=== PATIENT | female | born 1930 | race African-American/Black ===

== ENCOUNTER → 2018-07-26 | Outpatient (CLI) | payer MEDICARE, BC ==
[2018-07-26 13:14] LABS: ADD MAN DIFF? NO
[2018-07-26 13:20] LABS: BASOPHILS % 0.4 % (0.0-2.0); EOSINOPHILS # 0.1 10^3/ul (0.0-0.5); EOSINOPHILS % 0.7 % (0.0-7.0); HEMATOCRIT 39.8 % (37.0-47.0); HEMOGLOBIN 12.5 g/dl (12.0-16.0); LYMPHOCYTES # 3.7 10^3/ul (0.8-2.9); LYMPHOCYTES % 43.8 % (15.0-51.0); MEAN CORPUSCULAR HEMOGLOBIN 28.6 pg (29.0-33.0); MEAN CORPUSCULAR HGB CONC 31.4 g/dl (32.0-37.0); MEAN CORPUSCULAR VOLUME 91.1 fl (82.0-101.0); MEAN PLATELET VOLUME 11.3 fl (7.4-10.4); MONOCYTE # 0.6 10^3/ul (0.3-0.9); MONOCYTES % 7.1 % (0.0-11.0); NEUTROPHILS % 47.3 % (39.0-77.0); PLATELET COUNT 186 10^3/UL (140-415); RED BLOOD COUNT 4.37 10^6/ul (4.20-5.40); RED CELL DISTRIBUTION WIDTH 14.4 % (11.5-14.5)
[2018-07-26 13:20] LABS: WHITE BLOOD COUNT 8.5 10^3/ul (4.8-10.8)
[2018-07-26 13:29] LABS: ADD UMIC NO; UR ASCORBIC ACID NEGATIVE (NEGATIVE); UR BILIRUBIN (Dip) NEGATIVE (NEGATIVE); UR BLOOD (Dip) NEGATIVE (NEGATIVE); UR CLARITY SLIGHTLY CLOUDY (CLEAR); UR COLOR YELLOW (YELLOW); UR GLUCOSE (Dip) NEGATIVE (NEGATIVE); UR KETONES (Dip) NEGATIVE (NEGATIVE); UR LEUKOCYTE ESTERASE (Dip) NEGATIVE Leu/ul (NEGATIVE); UR NITRITE (Dip) NEGATIVE (NEGATIVE); UR RBC 0 /HPF (0-5); UR SPECIFIC GRAVITY (Dip) 1.016 (1.003-1.030); UR SQUAMOUS EPITHELIAL CELL FEW /HPF (FEW); UR TOTAL PROTEIN (Dip) NEGATIVE (NEGATIVE); UR UROBILINOGEN (Dip) 1+ mg/dL (NEGATIVE); UR WBC 3 /HPF (0-5)
[2018-07-26 13:41] LABS: INR 0.96; PARTIAL THROMBOPLASTIN TIME 23.6 Sec (23.0-35.0); PROTIME 12.9 Sec (11.9-14.9)
[2018-07-26 13:46] LABS: ALANINE AMINOTRANSFERASE 21 IU/L (13-69); ALBUMIN 4.3 g/dl (3.3-4.9); ALBUMIN/GLOBULIN RATIO 1.34; ALKALINE PHOSPHATASE 26 IU/L (42-121); ANION GAP 10 (5-13); ASPARTATE AMINO TRANSFERASE 20 IU/L (15-46); BILIRUBIN,INDIRECT 0.3 mg/dl (0-1.1); BILIRUBIN,TOTAL 0.3 mg/dl (0.2-1.3); BLOOD UREA NITROGEN 27 mg/dl (7-20); CALCIUM 10.4 mg/dl (8.4-10.2); CARBON DIOXIDE 27 mmol/L (21-31); CHLORIDE 105 mmol/L (97-110); CREATININE 1.17 mg/dl (0.44-1.00); GLUCOSE 88 mg/dl (70-220); POTASSIUM 4.5 mmol/L (3.5-5.1); SODIUM 142 mmol/L (135-144); TOTAL PROTEIN 7.5 g/dl (6.1-8.1)
== END | disposition home or self-care (01) ==
LOC: LAB 12:48
DX: Z01.818 Encounter for other preprocedural examination (principal); I10 Essential (primary) hypertension; D48.9 Neoplasm of uncertain behavior, unspecified
CPT/HCPCS: 71045; 80053; 81001; 81003; 85025; 85610; 85730; 93005

== ENCOUNTER 2018-08-02 06:28 | Inpatient (IN) | payer MEDICARE, BC ==
[2018-08-02] MEDS ORDERED: METOCLOPRAMIDE 10 MG INJ (07:00)
[2018-08-02] MEDS ORDERED: DEXAMETHASONE 4 MG/ML 1 ML INJ (07:00)
[2018-08-02] MEDS ORDERED: PROPOFOL 200 MG INJ (07:00)
[2018-08-02] MEDS ORDERED: FENTAnyl 50 MCG/ML VIAL (07:47)
[2018-08-02] MEDS ORDERED: LIDOCAINE 2% (SDV) 5 ML INJ (07:48)
[2018-08-02] MEDS ORDERED: ROCURONIUM 50 MG INJ (07:48)
[2018-08-02] MEDS ORDERED: SUCCINYLCHOLINE CHLORIDE 100 MG/5 ML SYG IV (07:48)
[2018-08-02] MEDS ORDERED: MIDAZOLAM 1 MG/ML 2 ML INJ (07:48)
[2018-08-02] MEDS ORDERED: ONDANSETRON 4 MG INJ (07:49)
[2018-08-02] MEDS: BUPIVACAINE 0.25% (MPF) 30 ML INJ (08:09)
[2018-08-02] MEDS: LIDOCAINE 1%/EPI 30 ML INJ (08:09)
[2018-08-02] MEDS ORDERED: ONDANSETRON 4 MG INJ IV (08:30)
[2018-08-02] MEDS ORDERED: DIPHENHYDRAMINE 50 MG INJ IV (08:30)
[2018-08-02] MEDS ORDERED: KETOROLAC 30 MG INJ IV (08:30)
[2018-08-02] MEDS ORDERED: HYDROmorphONE 1 MG/5 ML IV SYRINGE IV ×3 (08:30)
[2018-08-02] MEDS ORDERED: LABETALOL HCL 20MG INJ IV (08:30)
[2018-08-02] MEDS ORDERED: ALBUMIN HUMAN 5% 250 ML IV (08:30)
[2018-08-02] MEDS ORDERED: IPRATROPIUM (NEB) 0.5 MG/2.5 ML AMP HHN (08:30)
[2018-08-02] MEDS ORDERED: LEVALBUTEROL (NEB) 1.25 MG/0.5 ML AMP HHN (08:30)
[2018-08-02] MEDS ORDERED: MEPERIDINE 25 MG INJ IV (08:30)
[2018-08-02] MEDS ORDERED: hydrALAzine 20 MG INJ IV (08:30)
[2018-08-02] MEDS ORDERED: FENTAnyl 50 MCG/ML VIAL IV ×2 (08:30)
[2018-08-02] MEDS: CEFAZOLIN 2 GM/50 ML (PMX) 50 ML IVPB ×2 (10:45→18:36)
[2018-08-02] MEDS: metroNIDAZOLE 500 MG/NS (PMX) 100 ML IVPB ×2 (10:45→18:36)
[2018-08-02] MEDS ORDERED: ROPIVACAINE 0.5 % 30 ML VIAL (12:26)
[2018-08-02] MEDS ORDERED: morphine SULFATE/PF (10 MG/10 ML) INJ (12:27)
[2018-08-02] MEDS ORDERED: ACETAMINOPHEN 500 MG TAB PO (13:30)
[2018-08-02] MEDS: LORAZEPAM 2 MG INJ IV (16:46)
[2018-08-02] MEDS: D5W-0.45 NACL + KCL 20 MEQ 1,000 ML IV (16:47)
[2018-08-02] MEDS: HYDROmorphONE 0.5 MG/0.5 ML SYG IV (21:14)
[2018-08-03] MEDS: CEFAZOLIN 2 GM/50 ML (PMX) 50 ML IVPB ×2 (03:08→11:19)
[2018-08-03] MEDS: metroNIDAZOLE 500 MG/NS (PMX) 100 ML IVPB ×2 (03:09→11:56)
[2018-08-03] MEDS: HYDROmorphONE 0.5 MG/0.5 ML SYG IV ×2 (03:09→20:11)
[2018-08-03] MEDS: PANTOPRAZOLE 40 MG INJ IV (05:06)
[2018-08-03] MEDS: LEVOTHYROXINE 100 MCG VIAL IV (05:07)
[2018-08-03] MEDS: D5W-0.45 NACL + KCL 20 MEQ 1,000 ML IV ×2 (05:07→20:11)
[2018-08-03] MEDS: ONDANSETRON 4 MG INJ IV (05:09)
[2018-08-03 05:14] LABS: ADD MAN DIFF? NO
[2018-08-03 05:18] LABS: WHITE BLOOD COUNT 7.5 10^3/ul (4.8-10.8)
[2018-08-03 05:18] LABS: BASOPHILS % 0.1 % (0.0-2.0); EOSINOPHILS % 0.1 % (0.0-7.0); HEMATOCRIT 32.5 % (37.0-47.0); HEMOGLOBIN 10.2 g/dl (12.0-16.0); LYMPHOCYTES # 1.1 10^3/ul (0.8-2.9); LYMPHOCYTES % 14.4 % (15.0-51.0); MEAN CORPUSCULAR HEMOGLOBIN 28.4 pg (29.0-33.0); MEAN CORPUSCULAR HGB CONC 31.4 g/dl (32.0-37.0); MEAN CORPUSCULAR VOLUME 90.5 fl (82.0-101.0); MEAN PLATELET VOLUME 11.5 fl (7.4-10.4); MONOCYTE # 0.5 10^3/ul (0.3-0.9); MONOCYTES % 6.7 % (0.0-11.0); NEUTROPHIL # 5.9 10^3/ul (1.6-7.5); NEUTROPHILS % 78.4 % (39.0-77.0); PLATELET COUNT 140 10^3/UL (140-415); RED BLOOD COUNT 3.59 10^6/ul (4.20-5.40); RED CELL DISTRIBUTION WIDTH 13.8 % (11.5-14.5)
[2018-08-03 05:39] LABS: ANION GAP 9 (5-13); BLOOD UREA NITROGEN 14 mg/dl (7-20); CALCIUM 8.8 mg/dl (8.4-10.2); CARBON DIOXIDE 25 mmol/L (21-31); CHLORIDE 105 mmol/L (97-110); CREATININE 0.71 mg/dl (0.44-1.00); GLUCOSE 149 mg/dl (70-220); POTASSIUM 3.7 mmol/L (3.5-5.1); SODIUM 139 mmol/L (135-144)
[2018-08-03] MEDS ORDERED: LEVOTHYROXINE 125 MCG TAB PO (07:00)
[2018-08-03] MEDS: ATENOLOL 25 MG TAB PO (09:53)
[2018-08-03] MEDS: BENAZEPRIL 20 MG TAB PO (09:57)
[2018-08-03 11:07] LABS: ADD UMIC YES; UR ASCORBIC ACID NEGATIVE (NEGATIVE); UR BILIRUBIN (Dip) NEGATIVE (NEGATIVE); UR BLOOD (Dip) 1+ mg/dL (NEGATIVE); UR CLARITY CLEAR (CLEAR); UR COLOR YELLOW (YELLOW); UR GLUCOSE (Dip) 2+ mg/dL (NEGATIVE); UR KETONES (Dip) NEGATIVE (NEGATIVE); UR LEUKOCYTE ESTERASE (Dip) NEGATIVE Leu/ul (NEGATIVE); UR MUCUS FEW /HPF (NONE SEEN); UR NITRITE (Dip) NEGATIVE (NEGATIVE); UR RBC 20 /HPF (0-5); UR SPECIFIC GRAVITY (Dip) 1.017 (1.003-1.030); UR TOTAL PROTEIN (Dip) NEGATIVE (NEGATIVE); UR UROBILINOGEN (Dip) NEGATIVE (NEGATIVE); UR WBC 2 /HPF (0-5)
[2018-08-03] MEDS: HYDROCODONE/APAP (5/325) TAB PO (13:42)
[2018-08-04] MEDS: LORAZEPAM 2 MG INJ IV ×2 (01:46→22:37)
[2018-08-04 05:20] LABS: ADD MAN DIFF? NO
[2018-08-04 05:23] LABS: WHITE BLOOD COUNT 7.1 10^3/ul (4.8-10.8)
[2018-08-04 05:23] LABS: BASOPHILS % 0.3 % (0.0-2.0); EOSINOPHILS % 0.6 % (0.0-7.0); HEMATOCRIT 32.7 % (37.0-47.0); HEMOGLOBIN 10.2 g/dl (12.0-16.0); LYMPHOCYTES # 1.2 10^3/ul (0.8-2.9); MEAN CORPUSCULAR HEMOGLOBIN 28.2 pg (29.0-33.0); MEAN CORPUSCULAR HGB CONC 31.2 g/dl (32.0-37.0); MEAN CORPUSCULAR VOLUME 90.3 fl (82.0-101.0); MEAN PLATELET VOLUME 11.8 fl (7.4-10.4); MONOCYTE # 0.5 10^3/ul (0.3-0.9); MONOCYTES % 7.3 % (0.0-11.0); NEUTROPHIL # 5.3 10^3/ul (1.6-7.5); NEUTROPHILS % 74.4 % (39.0-77.0); PLATELET COUNT 134 10^3/UL (140-415); RED BLOOD COUNT 3.62 10^6/ul (4.20-5.40); RED CELL DISTRIBUTION WIDTH 13.9 % (11.5-14.5)
[2018-08-04] MEDS: PANTOPRAZOLE 40 MG INJ IV (05:32)
[2018-08-04] MEDS: LEVOTHYROXINE 100 MCG VIAL IV (05:32)
[2018-08-04 06:05] LABS: ANION GAP 5 (5-13); BLOOD UREA NITROGEN 6 mg/dl (7-20); CALCIUM 8.8 mg/dl (8.4-10.2); CARBON DIOXIDE 25 mmol/L (21-31); CHLORIDE 108 mmol/L (97-110); CREATININE 0.67 mg/dl (0.44-1.00); GLUCOSE 113 mg/dl (70-220); MAGNESIUM 1.9 mg/dl (1.7-2.5); PHOSPHORUS 1.8 mg/dl (2.5-4.9); POTASSIUM 3.9 mmol/L (3.5-5.1); SODIUM 138 mmol/L (135-144)
[2018-08-04] MEDS: BENAZEPRIL 20 MG TAB PO (09:19)
[2018-08-04] MEDS: D5W-0.45 NACL + KCL 20 MEQ 1,000 ML IV ×2 (09:19→23:34)
[2018-08-04] MEDS: FENOFIBRATE 145 MG TAB PO (09:19)
[2018-08-04] MEDS: CHOLECALCIFEROL 2,000 UNIT CAP PO ×2 (09:20→21:13)
[2018-08-04] MEDS: ATENOLOL 25 MG TAB PO ×2 (09:20→23:28)
[2018-08-04] MEDS: POTASSIUM PHOSPHATE 20 MEQ in SOD CHLORIDE 0.9% 250 ML IVPB (09:53)
[2018-08-04] MEDS: EZETIMIBE 10 MG TAB PO (09:53)
[2018-08-04] MEDS: HYDROCODONE/APAP (5/325) TAB PO (12:06)
[2018-08-04] MEDS: hydrALAzine 20 MG INJ IV (21:32)
[2018-08-05] MEDS: D5W-0.45 NACL + KCL 20 MEQ 1,000 ML IV ×2 (01:09→13:44)
[2018-08-05] MEDS: HYDROCODONE/APAP (5/325) TAB PO ×2 (01:23→22:10)
[2018-08-05] MEDS: PANTOPRAZOLE (EC) 40 MG TAB PO (05:50)
[2018-08-05] MEDS: LEVOTHYROXINE 100 MCG VIAL IV (05:50)
[2018-08-05 05:53] LABS: ANION GAP 4 (5-13); BLOOD UREA NITROGEN 5 mg/dl (7-20); CALCIUM 8.6 mg/dl (8.4-10.2); CARBON DIOXIDE 24 mmol/L (21-31); CHLORIDE 110 mmol/L (97-110); CREATININE 0.65 mg/dl (0.44-1.00); GLUCOSE 118 mg/dl (70-220); PHOSPHORUS 1.9 mg/dl (2.5-4.9); POTASSIUM 3.8 mmol/L (3.5-5.1); SODIUM 138 mmol/L (135-144)
[2018-08-05] MEDS: BENAZEPRIL 20 MG TAB PO (09:05)
[2018-08-05] MEDS: FENOFIBRATE 145 MG TAB PO (09:05)
[2018-08-05] MEDS: EZETIMIBE 10 MG TAB PO (09:06)
[2018-08-05] MEDS: CHOLECALCIFEROL 2,000 UNIT CAP PO ×2 (09:06→22:03)
[2018-08-05] MEDS: ATENOLOL 25 MG TAB PO ×2 (09:06→21:00)
[2018-08-05] MEDS: ONDANSETRON 4 MG INJ IV ×2 (13:44→23:05)
[2018-08-05] MEDS: POTASSIUM PHOSPHATE 20 MEQ in SOD CHLORIDE 0.9% 250 ML IVPB (18:20)
[2018-08-06 05:16] LABS: HEMATOCRIT 41.9 % (37.0-47.0); HEMOGLOBIN 13.2 g/dl (12.0-16.0); MEAN CORPUSCULAR HEMOGLOBIN 28.1 pg (29.0-33.0); MEAN CORPUSCULAR HGB CONC 31.5 g/dl (32.0-37.0); MEAN CORPUSCULAR VOLUME 89.3 fl (82.0-101.0); MEAN PLATELET VOLUME 11.3 fl (7.4-10.4); PLATELET COUNT 219 10^3/UL (140-415); RED BLOOD COUNT 4.69 10^6/ul (4.20-5.40); RED CELL DISTRIBUTION WIDTH 13.8 % (11.5-14.5)
[2018-08-06 05:16] LABS: WHITE BLOOD COUNT 8.4 10^3/ul (4.8-10.8)
[2018-08-06 05:17] LABS: ADD MAN DIFF? YES; POSITIVE DIFF @See below
[2018-08-06] MEDS: LEVOTHYROXINE 125 MCG TAB PO (05:45)
[2018-08-06] MEDS: PANTOPRAZOLE (EC) 40 MG TAB PO (05:45)
[2018-08-06 05:56] LABS: ANION GAP 9 (5-13); BLOOD UREA NITROGEN 11 mg/dl (7-20); CALCIUM 9.4 mg/dl (8.4-10.2); CARBON DIOXIDE 20 mmol/L (21-31); CHLORIDE 108 mmol/L (97-110); CREATININE 1.09 mg/dl (0.44-1.00); GLUCOSE 148 mg/dl (70-220); POTASSIUM 4.3 mmol/L (3.5-5.1); SODIUM 137 mmol/L (135-144)
[2018-08-06 06:46] LABS: ANISOCYTOSIS 1+ (0-0); BAND NEUTROPHILS % (M) 1 % (0-4); BURR CELLS 1+ (0-0); GIANT THROMBO% (M) 1 % (0-0); LYMPHOCYTES #M 1.4 10^3/ul (0.8-2.9); LYMPHOCYTES % (M) 17 % (15-51); MONOCYTE #M 0.6 10^3/ul (0.3-0.9); MONOCYTES % (M) 8 % (0-11); MYELOCYTES % (M) 1 % (0-0); PLATELET ESTIMATE NORMAL; POIKILOCYTOSIS 1+ (0-0); REACTIVE LYMPHOCYTES% (M) 1 % (0-0); SEGMENTED NEUTROPHILS (M) % 72 % (39-77); SMUDGE%M 10 % (0-0)
[2018-08-06] MEDS: ATENOLOL 25 MG TAB PO ×2 (08:08→21:00)
[2018-08-06] MEDS: CHOLECALCIFEROL 2,000 UNIT CAP PO ×2 (08:09→21:00)
[2018-08-06] MEDS: EZETIMIBE 10 MG TAB PO (08:09)
[2018-08-06] MEDS: FENOFIBRATE 145 MG TAB PO (08:09)
[2018-08-06] MEDS: BENAZEPRIL 20 MG TAB PO (08:10)
[2018-08-06] MEDS: ONDANSETRON 4 MG INJ IV ×2 (12:47→18:31)
[2018-08-06] MEDS: LORAZEPAM 2 MG INJ IV (21:29)
[2018-08-07 05:29] LABS: HEMATOCRIT 36.8 % (37.0-47.0); HEMOGLOBIN 11.6 g/dl (12.0-16.0); MEAN CORPUSCULAR HEMOGLOBIN 28.3 pg (29.0-33.0); MEAN CORPUSCULAR HGB CONC 31.5 g/dl (32.0-37.0); MEAN CORPUSCULAR VOLUME 89.8 fl (82.0-101.0); MEAN PLATELET VOLUME 11.1 fl (7.4-10.4); PLATELET COUNT 206 10^3/UL (140-415); RED CELL DISTRIBUTION WIDTH 13.9 % (11.5-14.5)
[2018-08-07 05:29] LABS: WHITE BLOOD COUNT 6.4 10^3/ul (4.8-10.8)
[2018-08-07 05:46] LABS: ADD MAN DIFF? YES; POSITIVE DIFF @See below
[2018-08-07] MEDS: PANTOPRAZOLE (EC) 40 MG TAB PO (05:50)
[2018-08-07] MEDS: LEVOTHYROXINE 125 MCG TAB PO (05:50)
[2018-08-07 06:01] LABS: ANION GAP 12 (5-13); BLOOD UREA NITROGEN 25 mg/dl (7-20); CALCIUM 9.2 mg/dl (8.4-10.2); CARBON DIOXIDE 20 mmol/L (21-31); CHLORIDE 105 mmol/L (97-110); CREATININE 1.06 mg/dl (0.44-1.00); GLUCOSE 114 mg/dl (70-220); POTASSIUM 4.1 mmol/L (3.5-5.1); SODIUM 137 mmol/L (135-144)
[2018-08-07 07:41] LABS: ANISOCYTOSIS 1+ (0-0); BAND NEUTROPHILS #M 3.2 10^3/ul (0.0-0.6); BAND NEUTROPHILS % (M) 51 % (0-4); GIANT THROMBO% (M) 4 % (0-0); LYMPHOCYTES % (M) 17 % (15-51); METAMYELOCYTES #M 0.1 10^3/ul (0.0-0.0); METAMYELOCYTES %M 3 % (0-0); MONOCYTE #M 0.3 10^3/ul (0.3-0.9); MONOCYTES % (M) 5 % (0-11); PLATELET ESTIMATE NORMAL; PLATELET MORPHOLOGY COMMENT @See below; POIKILOCYTOSIS 1+ (0-0); POLYCHROMASIA 1+ (0-0); SEG NEUT #M 1.7 10^3/ul (1.6-7.5); SEGMENTED NEUTROPHILS (M) % 24 % (39-77); SMUDGE%M 8 % (0-0)
[2018-08-07] MEDS: FENOFIBRATE 145 MG TAB PO (09:21)
[2018-08-07] MEDS: EZETIMIBE 10 MG TAB PO (09:21)
[2018-08-07] MEDS: CHOLECALCIFEROL 2,000 UNIT CAP PO ×2 (09:22→21:09)
[2018-08-07] MEDS: BENAZEPRIL 20 MG TAB PO (09:25)
[2018-08-07] MEDS: ATENOLOL 25 MG TAB PO ×2 (09:26→21:10)
[2018-08-07] MEDS: SOD CHLORIDE 0.9% 1,000 ML IV ×2 (11:26→21:09)
[2018-08-07] MEDS: ONDANSETRON 4 MG INJ IV (16:33)
[2018-08-07] MEDS: HYDROCODONE/APAP (5/325) TAB PO (18:40)
[2018-08-07] MEDS: LORAZEPAM 2 MG INJ IV (20:36)
[2018-08-08] MEDS: ONDANSETRON 4 MG INJ IV ×3 (02:10→18:31)
[2018-08-08] MEDS: LORAZEPAM 2 MG INJ IV (04:31)
[2018-08-08 05:16] LABS: HEMATOCRIT 34.5 % (37.0-47.0); HEMOGLOBIN 10.9 g/dl (12.0-16.0); MEAN CORPUSCULAR HEMOGLOBIN 28.3 pg (29.0-33.0); MEAN CORPUSCULAR HGB CONC 31.6 g/dl (32.0-37.0); MEAN CORPUSCULAR VOLUME 89.6 fl (82.0-101.0); MEAN PLATELET VOLUME 10.7 fl (7.4-10.4); PLATELET COUNT 206 10^3/UL (140-415); RED BLOOD COUNT 3.85 10^6/ul (4.20-5.40); RED CELL DISTRIBUTION WIDTH 13.9 % (11.5-14.5)
[2018-08-08 05:16] LABS: WHITE BLOOD COUNT 6.4 10^3/ul (4.8-10.8)
[2018-08-08 05:17] LABS: ADD MAN DIFF? YES; POSITIVE DIFF @See below
[2018-08-08 05:29] LABS: ANION GAP 9 (5-13); BLOOD UREA NITROGEN 27 mg/dl (7-20); CARBON DIOXIDE 20 mmol/L (21-31); CHLORIDE 110 mmol/L (97-110); CREATININE 0.81 mg/dl (0.44-1.00); GLUCOSE 106 mg/dl (70-220); POTASSIUM 4.1 mmol/L (3.5-5.1); SODIUM 139 mmol/L (135-144)
[2018-08-08] MEDS: LEVOTHYROXINE 125 MCG TAB PO (05:32)
[2018-08-08] MEDS: PANTOPRAZOLE (EC) 40 MG TAB PO (05:32)
[2018-08-08] MEDS: SOD CHLORIDE 0.9% 1,000 ML IV ×2 (06:38→18:30)
[2018-08-08] MEDS: EZETIMIBE 10 MG TAB PO (09:53)
[2018-08-08] MEDS: CHOLECALCIFEROL 2,000 UNIT CAP PO ×2 (09:53→20:16)
[2018-08-08] MEDS: FENOFIBRATE 145 MG TAB PO (09:53)
[2018-08-08] MEDS: BENAZEPRIL 20 MG TAB PO (09:55)
[2018-08-08] MEDS: ATENOLOL 25 MG TAB PO ×2 (09:55→20:17)
[2018-08-08 11:25] LABS: ANISOCYTOSIS 1+ (0-0); BAND NEUTROPHILS #M 1.3 10^3/ul (0.0-0.6); BAND NEUTROPHILS % (M) 21 % (0-4); BASOPHILS % (M) 1 % (0-2); BURR CELLS 3+ (0-0); LYMPHOCYTES #M 1.9 10^3/ul (0.8-2.9); LYMPHOCYTES % (M) 30 % (15-51); MONOCYTE #M 0.7 10^3/ul (0.3-0.9); MONOCYTES % (M) 12 % (0-11); PLATELET ESTIMATE NORMAL; POIKILOCYTOSIS 3+ (0-0); POLYCHROMASIA 1+ (0-0); REACTIVE LYMPHOCYTES #M 0.1 10^3/ul (0.0-0.0); REACTIVE LYMPHOCYTES% (M) 2 % (0-0); SEG NEUT #M 2.3 10^3/ul (1.6-7.5); SEGMENTED NEUTROPHILS (M) % 34 % (39-77); SMUDGE%M 5 % (0-0)
[2018-08-08] MEDS: HYDROCODONE/APAP (5/325) TAB PO (20:18)
[2018-08-09] MEDS: SOD CHLORIDE 0.9% 1,000 ML IV ×3 (02:00→15:36)
[2018-08-09] MEDS: LEVOTHYROXINE 125 MCG TAB PO (06:01)
[2018-08-09] MEDS: PANTOPRAZOLE (EC) 40 MG TAB PO (06:01)
[2018-08-09] MEDS: ONDANSETRON 4 MG INJ IV ×2 (07:55→13:37)
[2018-08-09] MEDS: CHOLECALCIFEROL 2,000 UNIT CAP PO ×2 (09:17→20:32)
[2018-08-09] MEDS: EZETIMIBE 10 MG TAB PO (09:17)
[2018-08-09] MEDS: FENOFIBRATE 145 MG TAB PO (09:17)
[2018-08-09] MEDS: BENAZEPRIL 20 MG TAB PO (09:18)
[2018-08-09] MEDS: ATENOLOL 25 MG TAB PO ×2 (09:18→20:33)
[2018-08-09 12:23] LABS: ANION GAP 14 (5-13); BLOOD UREA NITROGEN 21 mg/dl (7-20); CALCIUM 8.3 mg/dl (8.4-10.2); CARBON DIOXIDE 21 mmol/L (21-31); CHLORIDE 104 mmol/L (97-110); CREATININE 0.61 mg/dl (0.44-1.00); GLUCOSE 72 mg/dl (70-220); POTASSIUM 4.2 mmol/L (3.5-5.1); SODIUM 139 mmol/L (135-144)
[2018-08-09] MEDS: LORAZEPAM 2 MG INJ IV (21:05)
[2018-08-10] MEDS: SOD CHLORIDE 0.9% 1,000 ML IV ×4 (01:03→20:05)
[2018-08-10] MEDS: hydrALAzine 20 MG INJ IV ×2 (06:06→17:56)
[2018-08-10] MEDS: LEVOTHYROXINE 125 MCG TAB PO (06:09)
[2018-08-10] MEDS: PANTOPRAZOLE (EC) 40 MG TAB PO (06:09)
[2018-08-10 06:27] LABS: ABNORMAL IP MESSAGE 1; HEMATOCRIT 31.3 % (37.0-47.0); HEMOGLOBIN 9.9 g/dl (12.0-16.0); MEAN CORPUSCULAR HEMOGLOBIN 28.4 pg (29.0-33.0); MEAN CORPUSCULAR HGB CONC 31.6 g/dl (32.0-37.0); MEAN CORPUSCULAR VOLUME 89.7 fl (82.0-101.0); MEAN PLATELET VOLUME 10.3 fl (7.4-10.4); NUCLEATED RED BLOOD CELLS% 0.3 /100WBC (0.0-0.0); PLATELET COUNT 262 10^3/UL (140-415); RED BLOOD COUNT 3.49 10^6/ul (4.20-5.40); RED CELL DISTRIBUTION WIDTH 13.7 % (11.5-14.5)
[2018-08-10 06:41] LABS: ADD MAN DIFF? YES; POSITIVE DIFF @See below
[2018-08-10 06:45] LABS: ANION GAP 10 (5-13); BLOOD UREA NITROGEN 16 mg/dl (7-20); CALCIUM 8.2 mg/dl (8.4-10.2); CARBON DIOXIDE 21 mmol/L (21-31); CHLORIDE 109 mmol/L (97-110); CREATININE 0.63 mg/dl (0.44-1.00); GLUCOSE 61 mg/dl (70-220); POTASSIUM 3.4 mmol/L (3.5-5.1); SODIUM 140 mmol/L (135-144)
[2018-08-10 08:56] LABS: BAND NEUTROPHILS #M 0.8 10^3/ul (0.0-0.6); BAND NEUTROPHILS % (M) 11 % (0-4); BURR CELLS 1+ (0-0); EOSINOPHILS % (M) 1 % (0-7); GIANT THROMBO% (M) 1 % (0-0); LYMPHOCYTES #M 1.6 10^3/ul (0.8-2.9); LYMPHOCYTES % (M) 21 % (15-51); METAMYELOCYTES %M 1 % (0-0); MONOCYTE #M 0.7 10^3/ul (0.3-0.9); MONOCYTES % (M) 9 % (0-11); MYELOCYTES % (M) 1 % (0-0); OVALOCYTES 1+ (0-0); PLATELET ESTIMATE NORMAL; POLYCHROMASIA 1+ (0-0); SEG NEUT #M 4.5 10^3/ul (1.6-7.5); SEGMENTED NEUTROPHILS (M) % 56 % (39-77); SMUDGE%M 30 % (0-0)
[2018-08-10] MEDS: BENAZEPRIL 20 MG TAB PO (09:10)
[2018-08-10] MEDS: FENOFIBRATE 145 MG TAB PO (09:11)
[2018-08-10] MEDS: ATENOLOL 25 MG TAB PO ×2 (09:11→20:05)
[2018-08-10] MEDS: EZETIMIBE 10 MG TAB PO (09:11)
[2018-08-10] MEDS: CHOLECALCIFEROL 2,000 UNIT CAP PO ×2 (09:11→20:04)
[2018-08-10] MEDS: ONDANSETRON 4 MG INJ IV (15:36)
[2018-08-10] MEDS: LORAZEPAM 2 MG INJ IV (20:05)
[2018-08-11] MEDS: hydrALAzine 20 MG INJ IV (01:16)
[2018-08-11] MEDS: SOD CHLORIDE 0.9% 1,000 ML IV (05:04)
[2018-08-11] MEDS: LEVOTHYROXINE 125 MCG TAB PO (05:41)
[2018-08-11] MEDS: PANTOPRAZOLE (EC) 40 MG TAB PO (05:41)
[2018-08-11] MEDS: EZETIMIBE 10 MG TAB PO (08:55)
[2018-08-11] MEDS: CHOLECALCIFEROL 2,000 UNIT CAP PO (08:55)
[2018-08-11] MEDS: FENOFIBRATE 145 MG TAB PO (08:56)
[2018-08-11] MEDS: BENAZEPRIL 20 MG TAB PO (08:56)
[2018-08-11] MEDS: ATENOLOL 25 MG TAB PO (08:57)
== END 2018-08-11 14:40 | disposition home or self-care (01) | DRG 331 ==
LOC: REC 06:28 → MS1 08-03 13:27
PROC: 0DTF4ZZ Resection of Right Large Intestine, Percutaneous Endoscopic Approach (ICD-10-PCS; principal; 2018-08-02 08:00)
PROC: 0DU Gastrointestinal System, Supplement (ICD-10-PCS; 2018-08-02 08:00)
PROC: 0DNF4ZZ Release Right Large Intestine, Percutaneous Endoscopic Approach (ICD-10-PCS; 2018-08-02 08:00)
PROC: 0DNL4ZZ Release Transverse Colon, Percutaneous Endoscopic Approach (ICD-10-PCS; 2018-08-02 08:00)
DX: C18.2 Malignant neoplasm of ascending colon (principal); E83.39 Other disorders of phosphorus metabolism; I10 Essential (primary) hypertension; E78.5 Hyperlipidemia, unspecified; E03.9 Hypothyroidism, unspecified; Z90.710 Acquired absence of both cervix and uterus; M19.90 Unspecified osteoarthritis, unspecified site; E66.3 Overweight; Z68.25 Body mass index [BMI] 25.0-25.9, adult; K66.0 Peritoneal adhesions (postprocedural) (postinfection)
CPT/HCPCS: 71045; 80048; 81001; 83735; 84100; 85025; 86850; 86900; 86901; 87075; 87086; 88309

== ENCOUNTER 2018-08-16 14:47 | Inpatient (IN) | payer MEDICARE, BC ==
[2018-08-16] MEDS: morphine 4 MG/ML VIAL IV (20:51)
[2018-08-16] MEDS: ONDANSETRON 4 MG INJ IV (20:51)
[2018-08-16 22:00] LABS: INR 1.16; PT RATIO 1.2
[2018-08-16] MEDS: SOD CHLORIDE 0.9% 1,000 ML IV (22:00)
[2018-08-16 22:29] LABS: WHITE BLOOD COUNT 10.7 10^3/ul (4.8-10.8)
[2018-08-16 22:29] LABS: HEMATOCRIT 35.8 % (37.0-47.0); HEMOGLOBIN 11.5 g/dl (12.0-16.0); MEAN CORPUSCULAR HGB CONC 32.1 g/dl (32.0-37.0); MEAN CORPUSCULAR VOLUME 87.3 fl (82.0-101.0); MEAN PLATELET VOLUME 10.4 fl (7.4-10.4); NUCLEATED RED BLOOD CELLS% 0.2 /100WBC (0.0-0.0); PLATELET COUNT 189 10^3/UL (140-415); RED CELL DISTRIBUTION WIDTH 14.2 % (11.5-14.5)
[2018-08-16 22:34] LABS: ADD MAN DIFF? YES; POSITIVE DIFF @See below
[2018-08-16 22:53] LABS: BAND NEUTROPHILS #M 3.6 10^3/ul (0.0-0.6); BAND NEUTROPHILS % (M) 34 % (0-4); EOSINOPHILS % (M) 2 % (0-7); LYMPHOCYTES #M 2.3 10^3/ul (0.8-2.9); LYMPHOCYTES % (M) 22 % (15-51); MONOCYTE #M 0.5 10^3/ul (0.3-0.9); MONOCYTES % (M) 5 % (0-11); PLATELET ESTIMATE NORMAL; REACTIVE LYMPHOCYTES #M 0.2 10^3/ul (0.0-0.0); REACTIVE LYMPHOCYTES% (M) 2 % (0-0); SEG NEUT #M 4.1 10^3/ul (1.6-7.5); SEGMENTED NEUTROPHILS (M) % 35 % (39-77); SMUDGE%M 1 % (0-0)
[2018-08-16 23:03] LABS: ALANINE AMINOTRANSFERASE 32 IU/L (13-69); ALBUMIN 3.5 g/dl (3.3-4.9); ALKALINE PHOSPHATASE 34 IU/L (42-121); ANION GAP 16 (5-13); ASPARTATE AMINO TRANSFERASE 18 IU/L (15-46); BILIRUBIN,INDIRECT 0.3 mg/dl (0-1.1); BILIRUBIN,TOTAL 0.3 mg/dl (0.2-1.3); BLOOD UREA NITROGEN 26 mg/dl (7-20); CALCIUM 8.8 mg/dl (8.4-10.2); CARBON DIOXIDE 27 mmol/L (21-31); CHLORIDE 95 mmol/L (97-110); CREATININE 1.22 mg/dl (0.44-1.00); GLUCOSE 95 mg/dl (70-220); LIPASE 52 U/L (23-300); POTASSIUM 3.2 mmol/L (3.5-5.1); SODIUM 138 mmol/L (135-144)
[2018-08-16 23:14] LABS: TROPONIN-I 0.019 ng/ml (0.000-0.120)
[2018-08-16] MEDS: POTASSIUM CHLORIDE (SR) 20 MEQ TAB PO (23:40)
[2018-08-17] MEDS: LIDOCAINE 2% VISC 15 ML CUP PO (01:01)
[2018-08-17 01:05] LABS: ADD UMIC YES; UR ASCORBIC ACID NEGATIVE (NEGATIVE); UR BACTERIA FEW /HPF (NONE SEEN); UR BILIRUBIN (Dip) 1+ mg/dL (NEGATIVE); UR BLOOD (Dip) 1+ mg/dL (NEGATIVE); UR CLARITY CLOUDY (CLEAR); UR COLOR AMBER (YELLOW); UR GLUCOSE (Dip) NEGATIVE (NEGATIVE); UR HYALINE CAST FEW /HPF (NONE SEEN); UR KETONES (Dip) 1+ mg/dL (NEGATIVE); UR LEUKOCYTE ESTERASE (Dip) 2+ Leu/ul (NEGATIVE); UR MUCUS MANY /HPF (NONE SEEN); UR NITRITE (Dip) NEGATIVE (NEGATIVE); UR RBC 25 /HPF (0-5); UR SQUAMOUS EPITHELIAL CELL FEW /HPF (FEW); UR TOTAL PROTEIN (Dip) 1+ mg/dl (NEGATIVE); UR TRANSITIONAL EPI CELL FEW /HPF (NONE SEEN); UR UROBILINOGEN (Dip) 1+ mg/dL (NEGATIVE); UR WBC 173 /HPF (0-5)
[2018-08-17] MEDS ORDERED: morphine 2 MG INJ IV (03:00)
[2018-08-17] MEDS ORDERED: ACETAMINOPHEN 1000MG/100ML IV 100 ML IVPB (03:00)
[2018-08-17] MEDS: ONDANSETRON 4 MG INJ IV (03:12)
[2018-08-17] MEDS: D5W-0.45 NACL + KCL 30 MEQ 1,000 ML IV ×3 (03:36→19:00)
[2018-08-17] MEDS: hydrALAzine 20 MG INJ IV (03:46)
[2018-08-17] MEDS: LORAZEPAM 2 MG INJ IV ×2 (03:47→23:29)
[2018-08-17 05:26] LABS: WHITE BLOOD COUNT 10.8 10^3/ul (4.8-10.8)
[2018-08-17 05:26] LABS: HEMOGLOBIN 10.8 g/dl (12.0-16.0); MEAN CORPUSCULAR HGB CONC 31.8 g/dl (32.0-37.0); MEAN CORPUSCULAR VOLUME 88.1 fl (82.0-101.0); MEAN PLATELET VOLUME 10.9 fl (7.4-10.4); PLATELET COUNT 269 10^3/UL (140-415); RED BLOOD COUNT 3.86 10^6/ul (4.20-5.40); RED CELL DISTRIBUTION WIDTH 14.5 % (11.5-14.5)
[2018-08-17 05:47] LABS: ADD MAN DIFF? YES; POSITIVE DIFF @See below
[2018-08-17 05:53] LABS: ANION GAP 12 (5-13); BLOOD UREA NITROGEN 26 mg/dl (7-20); CALCIUM 8.3 mg/dl (8.4-10.2); CARBON DIOXIDE 27 mmol/L (21-31); CHLORIDE 100 mmol/L (97-110); CREATININE 0.98 mg/dl (0.44-1.00); GLUCOSE 91 mg/dl (70-220); MAGNESIUM 1.5 mg/dl (1.7-2.5); PHOSPHORUS 2.6 mg/dl (2.5-4.9); POTASSIUM 3.2 mmol/L (3.5-5.1); SODIUM 139 mmol/L (135-144)
[2018-08-17] MEDS: PANTOPRAZOLE 40 MG INJ IV (06:48)
[2018-08-17] MEDS: POTASSIUM CHLORIDE 50 ML IVPB ×3 (08:04→11:35)
[2018-08-17 09:45] LABS: ANISOCYTOSIS 1+ (0-0); BAND NEUTROPHILS #M 5.2 10^3/ul (0.0-0.6); BAND NEUTROPHILS % (M) 49 % (0-4); BURR CELLS 1+ (0-0); ERYTHROBLAST% (NRBC) (M) 1 % (0-0); GIANT THROMBO% (M) 2 % (0-0); LYMPHOCYTES #M 2.4 10^3/ul (0.8-2.9); LYMPHOCYTES % (M) 23 % (15-51); METAMYELOCYTES #M 0.1 10^3/ul (0.0-0.0); METAMYELOCYTES %M 1 % (0-0); MONOCYTE #M 0.5 10^3/ul (0.3-0.9); MONOCYTES % (M) 5 % (0-11); PLATELET ESTIMATE NORMAL; POIKILOCYTOSIS 3+ (0-0); POLYCHROMASIA 1+ (0-0); REACTIVE LYMPHOCYTES #M 0.1 10^3/ul (0.0-0.0); REACTIVE LYMPHOCYTES% (M) 1 % (0-0); SEG NEUT #M 2.8 10^3/ul (1.6-7.5); SEGMENTED NEUTROPHILS (M) % 21 % (39-77); SMUDGE%M 9 % (0-0); TARGET CELLS 1+ (0-0)
[2018-08-17] MEDS ORDERED: ONDANSETRON 4 MG INJ IV (12:00)
[2018-08-17] MEDS: POTASSIUM CHLORIDE 100 ML IVPB (13:17)
[2018-08-17] MEDS: FUROSEMIDE 20 MG INJ IV (13:22)
[2018-08-17] MEDS: MAGNESIUM SULFATE 1 GM/D5W 100 ML IVPB (15:14)
[2018-08-18] MEDS: D5W-0.45 NACL + KCL 30 MEQ 1,000 ML IV ×3 (02:06→19:29)
[2018-08-18] MEDS: PANTOPRAZOLE 40 MG INJ IV (05:29)
[2018-08-18] MEDS: FUROSEMIDE 20 MG INJ IV (05:29)
[2018-08-18 05:43] LABS: WHITE BLOOD COUNT 8.6 10^3/ul (4.8-10.8)
[2018-08-18 05:43] LABS: HEMATOCRIT 30.3 % (37.0-47.0); HEMOGLOBIN 9.7 g/dl (12.0-16.0); MEAN CORPUSCULAR HEMOGLOBIN 28.4 pg (29.0-33.0); MEAN CORPUSCULAR VOLUME 88.6 fl (82.0-101.0); MEAN PLATELET VOLUME 10.5 fl (7.4-10.4); PLATELET COUNT 244 10^3/UL (140-415); RED BLOOD COUNT 3.42 10^6/ul (4.20-5.40); RED CELL DISTRIBUTION WIDTH 14.6 % (11.5-14.5)
[2018-08-18 05:59] LABS: ADD MAN DIFF? YES; POSITIVE DIFF @See below
[2018-08-18 06:09] LABS: ANION GAP 3 (5-13); BLOOD UREA NITROGEN 17 mg/dl (7-20); CALCIUM 7.8 mg/dl (8.4-10.2); CARBON DIOXIDE 28 mmol/L (21-31); CHLORIDE 107 mmol/L (97-110); CREATININE 0.63 mg/dl (0.44-1.00); GLUCOSE 115 mg/dl (70-220); MAGNESIUM 1.8 mg/dl (1.7-2.5); POTASSIUM 3.6 mmol/L (3.5-5.1); SODIUM 138 mmol/L (135-144)
[2018-08-18 06:30] LABS: CHOLESTEROL 107 mg/dl (100-200)
[2018-08-18 06:30] LABS: CHOL/HDL RATIO 3.3 RATIO; HDL CHOLESTEROL 32 mg/dl (33-92); LDL CHOLESTEROL,CALCULATED 58 mg/dl; TRIGLYCERIDES 83 mg/dl (0-149)
[2018-08-18 07:31] LABS: ANISOCYTOSIS 1+ (0-0); BAND NEUTROPHILS #M 2.1 10^3/ul (0.0-0.6); BAND NEUTROPHILS % (M) 25 % (0-4); BURR CELLS 1+ (0-0); EOSINOPHILS % (M) 3 % (0-7); LYMPHOCYTES #M 0.9 10^3/ul (0.8-2.9); LYMPHOCYTES % (M) 11 % (15-51); MONOCYTES % (M) 12 % (0-11); MYELOCYTES #M 0.1 10^3/ul (0.0-0.0); MYELOCYTES % (M) 2 % (0-0); PLATELET ESTIMATE NORMAL; POIKILOCYTOSIS 1+ (0-0); POLYCHROMASIA 1+ (0-0); REACTIVE LYMPHOCYTES #M 0.1 10^3/ul (0.0-0.0); REACTIVE LYMPHOCYTES% (M) 2 % (0-0); SEG NEUT #M 4.1 10^3/ul (1.6-7.5); SEGMENTED NEUTROPHILS (M) % 45 % (39-77); SMUDGE%M 11 % (0-0); TARGET CELLS 1+ (0-0)
[2018-08-18] MEDS: LEVALBUTEROL (NEB) 0.63 MG/3 ML AMP HHN ×2 (10:19→19:52)
[2018-08-18] MEDS: LEVOFLOXACIN 500MG/D5W (PMX) 100 ML IVPB (20:29)
[2018-08-18] MEDS: LORAZEPAM 2 MG INJ IV (20:30)
[2018-08-19] MEDS: D5W-0.45 NACL + KCL 30 MEQ 1,000 ML IV ×4 (03:13→20:33)
[2018-08-19] MEDS: PANTOPRAZOLE 40 MG INJ IV (05:46)
[2018-08-19] MEDS: FUROSEMIDE 20 MG INJ IV (05:47)
[2018-08-19 05:50] LABS: WHITE BLOOD COUNT 6.9 10^3/ul (4.8-10.8)
[2018-08-19 05:50] LABS: HEMATOCRIT 32.3 % (37.0-47.0); HEMOGLOBIN 10.3 g/dl (12.0-16.0); MEAN CORPUSCULAR HEMOGLOBIN 28.1 pg (29.0-33.0); MEAN CORPUSCULAR HGB CONC 31.9 g/dl (32.0-37.0); MEAN CORPUSCULAR VOLUME 88.3 fl (82.0-101.0); MEAN PLATELET VOLUME 10.8 fl (7.4-10.4); PLATELET COUNT 271 10^3/UL (140-415); RED BLOOD COUNT 3.66 10^6/ul (4.20-5.40); RED CELL DISTRIBUTION WIDTH 14.4 % (11.5-14.5)
[2018-08-19 05:54] LABS: ADD MAN DIFF? YES; POSITIVE DIFF @See below
[2018-08-19 06:20] LABS: ANION GAP 5 (5-13); BLOOD UREA NITROGEN 10 mg/dl (7-20); CALCIUM 8.3 mg/dl (8.4-10.2); CARBON DIOXIDE 24 mmol/L (21-31); CHLORIDE 108 mmol/L (97-110); CREATININE 0.68 mg/dl (0.44-1.00); GLUCOSE 111 mg/dl (70-220); POTASSIUM 3.9 mmol/L (3.5-5.1); SODIUM 137 mmol/L (135-144)
[2018-08-19 09:09] LABS: BAND NEUTROPHILS #M 1.1 10^3/ul (0.0-0.6); BAND NEUTROPHILS % (M) 16 % (0-4); BASOPHILS % (M) 1 % (0-2); BURR CELLS 2+ (0-0); EOSINOPHILS % (M) 3 % (0-7); GIANT THROMBO% (M) 3 % (0-0); LYMPHOCYTES #M 2.8 10^3/ul (0.8-2.9); LYMPHOCYTES % (M) 41 % (15-51); MONOCYTE #M 0.2 10^3/ul (0.3-0.9); MONOCYTES % (M) 4 % (0-11); PLATELET ESTIMATE NORMAL; POIKILOCYTOSIS 1+ (0-0); REACTIVE LYMPHOCYTES #M 0.5 10^3/ul (0.0-0.0); REACTIVE LYMPHOCYTES% (M) 8 % (0-0); SEG NEUT #M 1.9 10^3/ul (1.6-7.5); SEGMENTED NEUTROPHILS (M) % 27 % (39-77); SMUDGE%M 17 % (0-0)
[2018-08-19] MEDS: LEVALBUTEROL (NEB) 0.63 MG/3 ML AMP HHN ×2 (09:21→19:57)
[2018-08-19] MEDS: LEVOFLOXACIN 500MG/D5W (PMX) 100 ML IVPB (20:30)
[2018-08-19] MEDS: hydrALAzine 20 MG INJ IV (20:33)
[2018-08-19] MEDS: LORAZEPAM 2 MG INJ IV (20:41)
[2018-08-20] MEDS: D5W-0.45 NACL + KCL 30 MEQ 1,000 ML IV ×3 (03:00→23:39)
[2018-08-20 05:34] LABS: ADD MAN DIFF? NO
[2018-08-20 05:37] LABS: WHITE BLOOD COUNT 6.6 10^3/ul (4.8-10.8)
[2018-08-20 05:37] LABS: BASOPHILS % 0.6 % (0.0-2.0); EOSINOPHILS % 0.3 % (0.0-7.0); HEMATOCRIT 34.4 % (37.0-47.0); HEMOGLOBIN 10.8 g/dl (12.0-16.0); LYMPHOCYTES # 1.5 10^3/ul (0.8-2.9); LYMPHOCYTES % 22.2 % (15.0-51.0); MEAN CORPUSCULAR HEMOGLOBIN 27.8 pg (29.0-33.0); MEAN CORPUSCULAR HGB CONC 31.4 g/dl (32.0-37.0); MEAN CORPUSCULAR VOLUME 88.4 fl (82.0-101.0); MEAN PLATELET VOLUME 10.8 fl (7.4-10.4); MONOCYTES % 15.6 % (0.0-11.0); NEUTROPHIL # 3.8 10^3/ul (1.6-7.5); NEUTROPHILS % 56.8 % (39.0-77.0); PLATELET COUNT 270 10^3/UL (140-415); RED BLOOD COUNT 3.89 10^6/ul (4.20-5.40); RED CELL DISTRIBUTION WIDTH 14.4 % (11.5-14.5)
[2018-08-20] MEDS: PANTOPRAZOLE 40 MG INJ IV (05:54)
[2018-08-20] MEDS: FUROSEMIDE 20 MG INJ IV (05:57)
[2018-08-20] MEDS ORDERED: LEVOTHYROXINE 100 MCG VIAL IV (06:00)
[2018-08-20 06:03] LABS: ANION GAP 5 (5-13); BLOOD UREA NITROGEN 9 mg/dl (7-20); CALCIUM 8.7 mg/dl (8.4-10.2); CARBON DIOXIDE 23 mmol/L (21-31); CHLORIDE 109 mmol/L (97-110); CREATININE 0.66 mg/dl (0.44-1.00); GLUCOSE 112 mg/dl (70-220); POTASSIUM 4.3 mmol/L (3.5-5.1); SODIUM 137 mmol/L (135-144)
[2018-08-20] MEDS: LEVOTHYROXINE 200 MCG VIAL IV (07:42)
[2018-08-20] MEDS: LEVALBUTEROL (NEB) 0.63 MG/3 ML AMP HHN ×2 (08:22→20:15)
[2018-08-20] MEDS: LEVOFLOXACIN 500MG/D5W (PMX) 100 ML IVPB (20:08)
[2018-08-21] MEDS: D5W-0.45 NACL + KCL 30 MEQ 1,000 ML IV ×3 (03:00→17:24)
[2018-08-21] MEDS: FUROSEMIDE 20 MG INJ IV (05:27)
[2018-08-21] MEDS: PANTOPRAZOLE 40 MG INJ IV (05:27)
[2018-08-21 05:53] LABS: ABNORMAL IP MESSAGE 1; HEMATOCRIT 33.2 % (37.0-47.0); HEMOGLOBIN 10.7 g/dl (12.0-16.0); MEAN CORPUSCULAR HEMOGLOBIN 28.2 pg (29.0-33.0); MEAN CORPUSCULAR HGB CONC 32.2 g/dl (32.0-37.0); MEAN CORPUSCULAR VOLUME 87.4 fl (82.0-101.0); MEAN PLATELET VOLUME 10.7 fl (7.4-10.4); PLATELET COUNT 269 10^3/UL (140-415); RED CELL DISTRIBUTION WIDTH 14.5 % (11.5-14.5)
[2018-08-21 05:53] LABS: WHITE BLOOD COUNT 6.6 10^3/ul (4.8-10.8)
[2018-08-21 06:25] LABS: ANION GAP 9 (5-13); BLOOD UREA NITROGEN 11 mg/dl (7-20); CALCIUM 8.8 mg/dl (8.4-10.2); CARBON DIOXIDE 21 mmol/L (21-31); CHLORIDE 107 mmol/L (97-110); CREATININE 0.67 mg/dl (0.44-1.00); GLUCOSE 109 mg/dl (70-220); POTASSIUM 4.3 mmol/L (3.5-5.1); SODIUM 137 mmol/L (135-144)
[2018-08-21] MEDS: LEVOTHYROXINE 100 MCG VIAL IV (06:34)
[2018-08-21 06:35] LABS: POSITIVE DIFF @See below
[2018-08-21 06:37] LABS: ADD MAN DIFF? YES
[2018-08-21] MEDS: LEVALBUTEROL (NEB) 0.63 MG/3 ML AMP HHN ×2 (08:43→19:49)
[2018-08-21 09:29] LABS: BAND NEUTROPHILS #M 0.9 10^3/ul (0.0-0.6); BAND NEUTROPHILS % (M) 14 % (0-4); LYMPHOCYTES #M 1.6 10^3/ul (0.8-2.9); LYMPHOCYTES % (M) 25 % (15-51); MONOCYTE #M 0.9 10^3/ul (0.3-0.9); MONOCYTES % (M) 14 % (0-11); MYELOCYTES % (M) 1 % (0-0); PLATELET ESTIMATE NORMAL; REACTIVE LYMPHOCYTES #M 0.2 10^3/ul (0.0-0.0); REACTIVE LYMPHOCYTES% (M) 4 % (0-0); SEG NEUT #M 2.8 10^3/ul (1.6-7.5); SEGMENTED NEUTROPHILS (M) % 42 % (39-77); SMUDGE%M 44 % (0-0)
[2018-08-21] MEDS: LEVOFLOXACIN 500MG/D5W (PMX) 100 ML IVPB (20:54)
[2018-08-21] MEDS: LORAZEPAM 2 MG INJ IV (22:24)
[2018-08-22] MEDS: D5W-0.45 NACL + KCL 30 MEQ 1,000 ML IV ×3 (03:43→20:25)
[2018-08-22] MEDS: PANTOPRAZOLE 40 MG INJ IV (06:20)
[2018-08-22] MEDS: LEVOTHYROXINE 100 MCG VIAL IV (06:27)
[2018-08-22] MEDS: FUROSEMIDE 20 MG INJ IV (06:27)
[2018-08-22 07:02] LABS: ANION GAP 4 (5-13); BLOOD UREA NITROGEN 9 mg/dl (7-20); CALCIUM 8.7 mg/dl (8.4-10.2); CARBON DIOXIDE 22 mmol/L (21-31); CHLORIDE 109 mmol/L (97-110); CREATININE 0.72 mg/dl (0.44-1.00); GLUCOSE 106 mg/dl (70-220); POTASSIUM 4.3 mmol/L (3.5-5.1); SODIUM 135 mmol/L (135-144)
[2018-08-22] MEDS: LEVALBUTEROL (NEB) 0.63 MG/3 ML AMP HHN ×2 (08:42→19:53)
[2018-08-22] MEDS: IOHEXOL 300MG/ML 150 ML BTL (12:16)
[2018-08-22] MEDS: LEVOFLOXACIN 500MG/D5W (PMX) 100 ML IVPB (20:25)
[2018-08-22] MEDS: LORAZEPAM 2 MG INJ IV (20:36)
[2018-08-23] MEDS: D5W-0.45 NACL + KCL 30 MEQ 1,000 ML IV ×3 (03:00→14:49)
[2018-08-23 05:19] LABS: ADD MAN DIFF? NO
[2018-08-23 05:23] LABS: ABNORMAL IP MESSAGE 1; HEMATOCRIT 33.9 % (37.0-47.0); HEMOGLOBIN 10.6 g/dl (12.0-16.0); MEAN CORPUSCULAR HEMOGLOBIN 27.7 pg (29.0-33.0); MEAN CORPUSCULAR HGB CONC 31.3 g/dl (32.0-37.0); MEAN CORPUSCULAR VOLUME 88.7 fl (82.0-101.0); PLATELET COUNT 220 10^3/UL (140-415); RED BLOOD COUNT 3.82 10^6/ul (4.20-5.40); RED CELL DISTRIBUTION WIDTH 14.3 % (11.5-14.5)
[2018-08-23 05:23] LABS: WHITE BLOOD COUNT 6.4 10^3/ul (4.8-10.8)
[2018-08-23 05:44] LABS: POSITIVE DIFF @See below
[2018-08-23 05:50] LABS: ANION GAP 7 (5-13); BLOOD UREA NITROGEN 8 mg/dl (7-20); CALCIUM 8.8 mg/dl (8.4-10.2); CARBON DIOXIDE 24 mmol/L (21-31); CHLORIDE 106 mmol/L (97-110); CREATININE 0.75 mg/dl (0.44-1.00); GLUCOSE 102 mg/dl (70-220); POTASSIUM 4.4 mmol/L (3.5-5.1); SODIUM 137 mmol/L (135-144)
[2018-08-23] MEDS: PANTOPRAZOLE 40 MG INJ IV (06:28)
[2018-08-23] MEDS: FUROSEMIDE 20 MG INJ IV (06:47)
[2018-08-23] MEDS: LEVOTHYROXINE 100 MCG VIAL IV (06:48)
[2018-08-23 07:04] LABS: ANISOCYTOSIS 1+ (0-0); BAND NEUTROPHILS #M 0.3 10^3/ul (0.0-0.6); BAND NEUTROPHILS % (M) 5 % (0-4); BURR CELLS 2+ (0-0); EOSINOPHILS % (M) 1 % (0-7); GIANT THROMBO% (M) 6 % (0-0); LYMPHOCYTES #M 1.5 10^3/ul (0.8-2.9); LYMPHOCYTES % (M) 24 % (15-51); METAMYELOCYTES #M 0.2 10^3/ul (0.0-0.0); METAMYELOCYTES %M 4 % (0-0); MONOCYTE #M 0.3 10^3/ul (0.3-0.9); MONOCYTES % (M) 6 % (0-11); MYELOCYTES #M 0.6 10^3/ul (0.0-0.0); MYELOCYTES % (M) 10 % (0-0); PLATELET ESTIMATE NORMAL; POIKILOCYTOSIS 3+ (0-0); PROMYELOCYTES #M 0.1 10^3/ul (0-0); PROMYELOCYTES % (M) 3 % (0-0); REACTIVE LYMPHOCYTES #M 0.3 10^3/ul (0.0-0.0); REACTIVE LYMPHOCYTES% (M) 6 % (0-0); SEG NEUT #M 2.6 10^3/ul (1.6-7.5); SEGMENTED NEUTROPHILS (M) % 41 % (39-77); SMUDGE%M 7 % (0-0); TARGET CELLS 1+ (0-0)
[2018-08-23] MEDS: LEVALBUTEROL (NEB) 0.63 MG/3 ML AMP HHN ×2 (08:49→19:52)
[2018-08-23] MEDS: LEVOFLOXACIN 500 MG TAB PO (21:29)
[2018-08-24] MEDS: D5W-0.45 NACL + KCL 30 MEQ 1,000 ML IV ×4 (01:26→19:53)
[2018-08-24] MEDS: LORAZEPAM 2 MG INJ IV ×2 (01:34→19:55)
[2018-08-24 05:27] LABS: ABNORMAL IP MESSAGE 1; HEMATOCRIT 33.5 % (37.0-47.0); HEMOGLOBIN 10.5 g/dl (12.0-16.0); MEAN CORPUSCULAR HEMOGLOBIN 27.6 pg (29.0-33.0); MEAN CORPUSCULAR HGB CONC 31.3 g/dl (32.0-37.0); MEAN CORPUSCULAR VOLUME 87.9 fl (82.0-101.0); MEAN PLATELET VOLUME 9.9 fl (7.4-10.4); PLATELET COUNT 205 10^3/UL (140-415); RED BLOOD COUNT 3.81 10^6/ul (4.20-5.40); RED CELL DISTRIBUTION WIDTH 14.4 % (11.5-14.5)
[2018-08-24 05:35] LABS: ADD MAN DIFF? YES; POSITIVE DIFF @See below
[2018-08-24 06:04] LABS: ANION GAP 7 (5-13); BLOOD UREA NITROGEN 7 mg/dl (7-20); CALCIUM 8.7 mg/dl (8.4-10.2); CARBON DIOXIDE 23 mmol/L (21-31); CHLORIDE 107 mmol/L (97-110); CREATININE 0.64 mg/dl (0.44-1.00); GLUCOSE 115 mg/dl (70-220); POTASSIUM 4.2 mmol/L (3.5-5.1); SODIUM 137 mmol/L (135-144)
[2018-08-24] MEDS: LEVOTHYROXINE 125 MCG TAB PO (06:22)
[2018-08-24] MEDS: LEVOFLOXACIN 500 MG TAB PO (06:22)
[2018-08-24] MEDS: PANTOPRAZOLE (EC) 40 MG TAB PO (06:22)
[2018-08-24] MEDS: FUROSEMIDE 20 MG INJ IV (06:28)
[2018-08-24 07:12] LABS: BAND NEUTROPHILS % (M) 1 % (0-4); EOSINOPHILS % (M) 3 % (0-7); GIANT THROMBO% (M) 1 % (0-0); LYMPHOCYTES #M 1.8 10^3/ul (0.8-2.9); LYMPHOCYTES % (M) 31 % (15-51); METAMYELOCYTES %M 1 % (0-0); MONOCYTE #M 0.3 10^3/ul (0.3-0.9); MONOCYTES % (M) 6 % (0-11); MYELOCYTES #M 0.2 10^3/ul (0.0-0.0); MYELOCYTES % (M) 4 % (0-0); PLATELET ESTIMATE NORMAL; SEG NEUT #M 3.2 10^3/ul (1.6-7.5); SEGMENTED NEUTROPHILS (M) % 54 % (39-77); SMUDGE%M 30 % (0-0)
[2018-08-24] MEDS: LEVALBUTEROL (NEB) 0.63 MG/3 ML AMP HHN ×2 (09:58→19:17)
[2018-08-25] MEDS: D5W-0.45 NACL + KCL 30 MEQ 1,000 ML IV ×3 (03:30→19:06)
[2018-08-25] MEDS: FUROSEMIDE 20 MG INJ IV (05:16)
[2018-08-25] MEDS: LEVOFLOXACIN 500 MG TAB PO (05:17)
[2018-08-25] MEDS: LEVOTHYROXINE 125 MCG TAB PO (05:17)
[2018-08-25] MEDS: PANTOPRAZOLE (EC) 40 MG TAB PO (05:17)
[2018-08-25] MEDS: LEVALBUTEROL (NEB) 0.63 MG/3 ML AMP HHN ×2 (08:45→19:33)
[2018-08-25] MEDS ORDERED: morphine LIQ (10 MG/5 ML) CUP PO (13:56)
[2018-08-25] MEDS: LORAZEPAM 0.5 MG TAB PO (22:52)
[2018-08-26] MEDS: D5W-0.45 NACL + KCL 30 MEQ 1,000 ML IV ×3 (04:01→12:26)
[2018-08-26] MEDS: LEVOFLOXACIN 500 MG TAB PO (06:04)
[2018-08-26] MEDS: PANTOPRAZOLE (EC) 40 MG TAB PO (06:04)
[2018-08-26] MEDS: LEVOTHYROXINE 125 MCG TAB PO (06:04)
[2018-08-26] MEDS: FUROSEMIDE 20 MG INJ IV (06:04)
[2018-08-26] MEDS: LEVALBUTEROL (NEB) 0.63 MG/3 ML AMP HHN (08:40)
== END 2018-08-26 19:54 | DRG 389 ==
LOC: PP2 23:26 → E/R 14:47
DX: K56.609 Unspecified intestinal obstruction, unspecified as to partial versus complete obstruction (principal); N39.0 Urinary tract infection, site not specified; B96.20 Unspecified Escherichia coli [E. coli] as the cause of diseases classified elsewhere; I10 Essential (primary) hypertension; E78.5 Hyperlipidemia, unspecified; E03.9 Hypothyroidism, unspecified; E87.6 Hypokalemia; E83.42 Hypomagnesemia; Z85.038 Personal history of other malignant neoplasm of large intestine; Z90.710 Acquired absence of both cervix and uterus
CPT/HCPCS: 71045; 74018; 74176; 74250; 80048; 80053; 80061; 81001; 83690; 83735; 84100; 84443; 84484; 85025; 85610; 85730; 87081; 87086; 93005; 93970; 94640; 94664; 97110; 97116; 97530; 99285-25

== ENCOUNTER 2018-08-26 20:00 | Inpatient (IN) | payer MEDICARE, BC ==
[2018-08-26] MEDS ORDERED: ONDANSETRON 4 MG INJ IV (22:16)
[2018-08-26] MEDS ORDERED: morphine LIQ (10 MG/5 ML) CUP PO (22:16)
[2018-08-26] MEDS ORDERED: hydrALAzine 20 MG INJ IV (22:16)
[2018-08-26] MEDS ORDERED: BISACODYL 10 MG SUPP PR (23:30)
[2018-08-26] MEDS ORDERED: ACETAMINOPHEN 325 MG TAB PO (23:30)
[2018-08-26] MEDS ORDERED: MAGNESIUM HYDROXIDE 30ML CUP PO (23:30)
[2018-08-27] MEDS: LORAZEPAM 0.5 MG TAB PO ×2 (00:24→21:24)
[2018-08-27 01:41] LABS: ADD UMIC YES; UR ASCORBIC ACID NEGATIVE (NEGATIVE); UR BILIRUBIN (Dip) NEGATIVE (NEGATIVE); UR BLOOD (Dip) NEGATIVE (NEGATIVE); UR CLARITY CLEAR (CLEAR); UR COLOR YELLOW (YELLOW); UR GLUCOSE (Dip) NEGATIVE (NEGATIVE); UR KETONES (Dip) NEGATIVE (NEGATIVE); UR LEUKOCYTE ESTERASE (Dip) TRACE Leu/ul (NEGATIVE); UR NITRITE (Dip) NEGATIVE (NEGATIVE); UR RBC 0 /HPF (0-5); UR SPECIFIC GRAVITY (Dip) 1.009 (1.003-1.030); UR SQUAMOUS EPITHELIAL CELL FEW /HPF (FEW); UR TOTAL PROTEIN (Dip) NEGATIVE (NEGATIVE); UR UROBILINOGEN (Dip) NEGATIVE (NEGATIVE); UR WBC 2 /HPF (0-5)
[2018-08-27] MEDS: LEVOTHYROXINE 125 MCG TAB PO (06:20)
[2018-08-27] MEDS: LEVOFLOXACIN 500 MG TAB PO (06:20)
[2018-08-27] MEDS: FUROSEMIDE 20 MG INJ IV (06:20)
[2018-08-27] MEDS: PANTOPRAZOLE (EC) 40 MG TAB PO (06:20)
[2018-08-27 08:28] LABS: ADD MAN DIFF? NO
[2018-08-27 08:31] LABS: WHITE BLOOD COUNT 6.2 10^3/ul (4.8-10.8)
[2018-08-27 08:31] LABS: BASOPHILS % 0.6 % (0.0-2.0); EOSINOPHILS # 0.1 10^3/ul (0.0-0.5); EOSINOPHILS % 1.1 % (0.0-7.0); HEMATOCRIT 36.5 % (37.0-47.0); HEMOGLOBIN 11.5 g/dl (12.0-16.0); LYMPHOCYTES # 1.5 10^3/ul (0.8-2.9); LYMPHOCYTES % 23.2 % (15.0-51.0); MEAN CORPUSCULAR HEMOGLOBIN 27.5 pg (29.0-33.0); MEAN CORPUSCULAR HGB CONC 31.5 g/dl (32.0-37.0); MEAN CORPUSCULAR VOLUME 87.3 fl (82.0-101.0); MEAN PLATELET VOLUME 10.1 fl (7.4-10.4); MONOCYTE # 0.4 10^3/ul (0.3-0.9); MONOCYTES % 6.6 % (0.0-11.0); NEUTROPHIL # 4.1 10^3/ul (1.6-7.5); NEUTROPHILS % 66.3 % (39.0-77.0); PLATELET COUNT 229 10^3/UL (140-415); RED BLOOD COUNT 4.18 10^6/ul (4.20-5.40); RED CELL DISTRIBUTION WIDTH 14.3 % (11.5-14.5)
[2018-08-27] MEDS: DOCUSATE SODIUM 100 MG CAP PO ×2 (09:00→21:24)
[2018-08-27 09:14] LABS: ALANINE AMINOTRANSFERASE 40 IU/L (13-69); ALBUMIN 3.2 g/dl (3.3-4.9); ALBUMIN/GLOBULIN RATIO 1.06; ALKALINE PHOSPHATASE 71 IU/L (42-121); ANION GAP 10 (5-13); ASPARTATE AMINO TRANSFERASE 40 IU/L (15-46); BILIRUBIN,INDIRECT 0.2 mg/dl (0-1.1); BILIRUBIN,TOTAL 0.2 mg/dl (0.2-1.3); BLOOD UREA NITROGEN 6 mg/dl (7-20); CALCIUM 9.5 mg/dl (8.4-10.2); CARBON DIOXIDE 22 mmol/L (21-31); CHLORIDE 105 mmol/L (97-110); CREATININE 0.73 mg/dl (0.44-1.00); GLUCOSE 92 mg/dl (70-220); POTASSIUM 3.9 mmol/L (3.5-5.1); SODIUM 137 mmol/L (135-144); TOTAL PROTEIN 6.2 g/dl (6.1-8.1)
[2018-08-27] MEDS: ATENOLOL 25 MG TAB PO (09:26)
[2018-08-27] MEDS: INFLUENZA VIRUS VACCINE 0.5 ML (DISPENSING) IM* (10:00)
[2018-08-27] MEDS: SENNA TAB PO (21:24)
[2018-08-28] MEDS: LEVOFLOXACIN 500 MG TAB PO (06:13)
[2018-08-28] MEDS: FUROSEMIDE 20 MG INJ IV (06:14)
[2018-08-28] MEDS: PANTOPRAZOLE (EC) 40 MG TAB PO (06:14)
[2018-08-28] MEDS: LEVOTHYROXINE 125 MCG TAB PO (06:14)
[2018-08-28] MEDS: ATENOLOL 25 MG TAB PO (09:54)
[2018-08-28] MEDS: DOCUSATE SODIUM 100 MG CAP PO ×2 (09:54→20:28)
[2018-08-28] MEDS: SENNA TAB PO (20:28)
[2018-08-28] MEDS: LACTULOSE 30ML CUP PO (20:28)
[2018-08-28] MEDS: LORAZEPAM 0.5 MG TAB PO (20:28)
[2018-08-29] MEDS: LEVOFLOXACIN 500 MG TAB PO (06:06)
[2018-08-29] MEDS: PANTOPRAZOLE (EC) 40 MG TAB PO (06:06)
[2018-08-29] MEDS: LEVOTHYROXINE 125 MCG TAB PO (06:06)
[2018-08-29] MEDS: LEVALBUTEROL (NEB) 0.63 MG/3 ML AMP HHN ×2 (09:00→19:40)
[2018-08-29] MEDS: DOCUSATE SODIUM 100 MG CAP PO ×2 (10:01→20:22)
[2018-08-29] MEDS: FUROSEMIDE 40 MG TAB PO (10:02)
[2018-08-29] MEDS: ATENOLOL 25 MG TAB PO (10:02)
[2018-08-29] MEDS: SENNA TAB PO (20:22)
[2018-08-29] MEDS: LORAZEPAM 0.5 MG TAB PO (23:40)
[2018-08-30] MEDS: LEVOTHYROXINE 125 MCG TAB PO (06:14)
[2018-08-30] MEDS: LEVOFLOXACIN 500 MG TAB PO (06:14)
[2018-08-30] MEDS: PANTOPRAZOLE (EC) 40 MG TAB PO (06:15)
[2018-08-30] MEDS: DOCUSATE SODIUM 100 MG CAP PO (08:51)
[2018-08-30] MEDS: LEVALBUTEROL (NEB) 0.63 MG/3 ML AMP HHN (08:52)
[2018-08-30] MEDS: FUROSEMIDE 40 MG TAB PO (10:11)
[2018-08-30] MEDS: ATENOLOL 25 MG TAB PO (10:12)
== END 2018-08-30 11:45 | disposition home health service (06) | DRG 948 ==
LOC: VRC 20:00
DX: R53.81 Other malaise (principal); N39.0 Urinary tract infection, site not specified; Z87.19 Personal history of other diseases of the digestive system; B96.20 Unspecified Escherichia coli [E. coli] as the cause of diseases classified elsewhere; I10 Essential (primary) hypertension; E78.5 Hyperlipidemia, unspecified; E03.9 Hypothyroidism, unspecified; Z90.49 Acquired absence of other specified parts of digestive tract; Z90.710 Acquired absence of both cervix and uterus; F39 Unspecified mood [affective] disorder
CPT/HCPCS: 80053; 81001; 85025; 87081; 87086; 90686; 94664; 97110; 97112; 97116; 97150; 97162; 97166; 97530; 97535

== ENCOUNTER → 2019-01-21 | Outpatient (CLI) | payer MEDICARE, BC ==
[2019-01-21 16:08] LABS: ADD MAN DIFF? NO
[2019-01-21 16:10] LABS: BASOPHILS % 0.3 % (0.0-2.0); HEMATOCRIT 42.9 % (37.0-47.0); HEMOGLOBIN 13.4 g/dl (12.0-16.0); LYMPHOCYTES # 1.1 10^3/ul (0.8-2.9); LYMPHOCYTES % 9.4 % (15.0-51.0); MEAN CORPUSCULAR HEMOGLOBIN 27.7 pg (29.0-33.0); MEAN CORPUSCULAR HGB CONC 31.2 g/dl (32.0-37.0); MEAN CORPUSCULAR VOLUME 88.6 fl (82.0-101.0); MEAN PLATELET VOLUME 11.3 fl (7.4-10.4); MONOCYTE # 0.5 10^3/ul (0.3-0.9); MONOCYTES % 4.4 % (0.0-11.0); NEUTROPHIL # 9.7 10^3/ul (1.6-7.5); NEUTROPHILS % 85.5 % (39.0-77.0); PLATELET COUNT 164 10^3/UL (140-415); RED BLOOD COUNT 4.84 10^6/ul (4.20-5.40); RED CELL DISTRIBUTION WIDTH 13.8 % (11.5-14.5)
[2019-01-21 16:10] LABS: WHITE BLOOD COUNT 11.4 10^3/ul (4.8-10.8)
[2019-01-21 16:29] LABS: ALANINE AMINOTRANSFERASE 12 IU/L (13-69); ALBUMIN 4.7 g/dl (3.3-4.9); ALBUMIN/GLOBULIN RATIO 1.34; ALKALINE PHOSPHATASE 41 IU/L (42-121); ANION GAP 12 (5-13); ASPARTATE AMINO TRANSFERASE 32 IU/L (15-46); BILIRUBIN,INDIRECT 0.5 mg/dl (0-1.1); BILIRUBIN,TOTAL 0.5 mg/dl (0.2-1.3); BLOOD UREA NITROGEN 27 mg/dl (7-20); CALCIUM 10.7 mg/dl (8.4-10.2); CARBON DIOXIDE 24 mmol/L (21-31); CHLORIDE 106 mmol/L (97-110); GLUCOSE 135 mg/dl (70-220); POTASSIUM 4.4 mmol/L (3.5-5.1); SODIUM 142 mmol/L (135-144); TOTAL PROTEIN 8.2 g/dl (6.1-8.1)
[2019-01-21 16:59] LABS: CARCINOEMBRYONIC ANTIGEN 2.4 ng/ml (0.0-5.0)
== END | disposition home or self-care (01) ==
LOC: LAB 15:42
DX: C18.9 Malignant neoplasm of colon, unspecified (principal)
CPT/HCPCS: 71046; 80053; 82378; 85025

== ENCOUNTER → 2019-01-31 | Outpatient (CLI) | payer MEDICARE, BC | END | disposition home or self-care (01) | LOC: RAD 15:16 | DX: S22.41XA Multiple fractures of ribs, right side, initial encounter for closed fracture (principal); X58.XXXA Exposure to other specified factors, initial encounter; Y92.89 Other specified places as the place of occurrence of the external cause; I70.0 Atherosclerosis of aorta | CPT/HCPCS: 71046 ==